=== PATIENT | male | born 1975 | race Caucasian/White ===

== ENCOUNTER 2019-02-08 02:16 | Emergency (ER) | payer MEDICAID, MEDICARE ==
[~2019-02-08] VITALS: Ht 175.3 cm; Wt 65.9 kg
[2019-02-08] MEDS ORDERED: pantoprazole 40mg Tablet.DR PO ONE (02:35)
[2019-02-08] MEDS ORDERED: LIDOcaine Viscous 15ml cup PO ONE (02:35)
[2019-02-08] MEDS ORDERED: mag hydrox/Alum hydrox/simeth 30ml oral suspension PO ONE (02:35)
[2019-02-08] MEDS ORDERED: ondansetron 4mg rapidly disintigrating tab PO ONE (02:35)
[2019-02-08] MEDS ORDERED: famotidine 20mg tablet PO ONE (02:35)
[2019-02-08 02:43] LABS: BASOPHILS # (AUTO) 0.1 X10'3 (0-0.2); BASOPHILS % (AUTO) 1.2 % (0-1); EOSINOPHILS # (AUTO) 0.1 X10'3 (0-0.9); EOSINOPHILS % (AUTO) 1.1 % (0-6); HEMATOCRIT 44.1 % (42.0-52.0); HEMOGLOBIN 15.4 g/dl (14.0-17.9); LYMPHOCYTES % (AUTO) 36.2 % (21-51); MEAN CORPUSCULAR HEMOGLOBIN 33.5 PG (27.0-31.0); MEAN CORPUSCULAR HGB CONC 34.9 g/dL (33.0-36.5); MEAN PLATELET VOLUME 7.5 FL (7.4-10.4); MONOCYTES # (AUTO) 0.4 X10'3 (0-0.9); MONOCYTES % (AUTO) 4.8 % (2-12); NEUTROPHILS # (AUTO) 4.8 X10'3 (1.8-7.7); NEUTROPHILS % (AUTO) 56.7 % (42-75); PLATELET COUNT 217 X10'3 (140-440); RED CELL DISTRIBUTION WIDTH 13.9 % (11.5-14.5); WHITE BLOOD COUNT 8.4 X10'3 (4.5-11.0)
[2019-02-08 02:44] LABS: CLARITY,URINE CLEAR (Clear); COLOR,URINE YELLOW (Yellow); GLUCOSE, URINE NEGATIVE (Neg); KETONES,URINE NEGATIVE (Neg); LEUKOCYTE ESTERASE ,URINE NEGATIVE (Neg); NITRITES, URINE NEGATIVE (Neg); OCCULT BLOOD,URINE NEGATIVE (Neg); PH,URINE 6.5 (4.8-8.0); PROTEIN,URINE NEGATIVE (Neg)
[2019-02-08 02:46] LABS: UA COLLECTION TYPE CLN CATCH MIDSTREAM
[2019-02-08 02:54] LABS: ALANINE AMINOTRANSFERASE 37 U/L (12-78); ALBUMIN 3.7 G/DL (3.4-5.0); ALKALINE PHOSPHATASE 138 IU/L (46-116); ANION GAP 13 (8-16); ASPARTATE AMINO TRANSFERASE 51 U/L (10-37); BILIRUBIN,TOTAL 0.5 MG/DL (0.1-1.0); BLOOD UREA NITROGEN 11 MG/DL (7-18); BUN/CREATININE RATIO 12.5 (5.4-32.0); CALCIUM 8.6 MG/DL (8.5-10.1); CHLORIDE 105 MMOL/L (99-107); CREATININE 0.88 MG/DL (0.60-1.10); GLUCOSE 110 MG/DL (70-104); LIPASE 142 U/L (73-393); POTASSIUM 3.5 MMOL/L (3.5-5.1); SODIUM 143 MMOL/L (135-145); TOTAL CARBON DIOXIDE 25.5 MMOL/L (24-32); TOTAL PROTEIN 7.5 G/DL (6.4-8.2); eGFR > 90 ML/MIN
[2019-02-08] MEDS ORDERED: HYDROcodone/acetaminophen 5mg/325mg tablet PO ONE (02:55)
[2019-02-08 03:09] LABS: ETHANOL 0.036 GM/DL (0.0-0.010)
[2019-02-08 04:24] VITALS: BP 159/105
== END 2019-02-08 04:26 | disposition home or self-care (01) ==
LOC: ER 02:17
DX: R10.12 Left upper quadrant pain (principal); F41.9 Anxiety disorder, unspecified; F32.9 Major depressive disorder, single episode, unspecified; F17.200 Nicotine dependence, unspecified, uncomplicated; F12.90 Cannabis use, unspecified, uncomplicated; F10.10 Alcohol abuse, uncomplicated; Z90.49 Acquired absence of other specified parts of digestive tract; Z98.890 Other specified postprocedural states; Z95.0 Presence of cardiac pacemaker; Z88.0 Allergy status to penicillin; Y90.0 Blood alcohol level of less than 20 mg/100 ml
CPT/HCPCS: 36415; 74176; 80053; 80320; 81003; 83690; 85025; 93005; 99284; J2405

== ENCOUNTER 2023-02-25 12:39 | Emergency (ER) | payer MEDICARE ==
[~2023-02-25] VITALS: Ht 175.3 cm; Wt 76.4 kg
[2023-02-25 13:16] VITALS: BP 111/79; PULSE 58; RESP 20; TEMP 98.3; O2SAT 100
== END 2023-02-25 17:40 | disposition left against medical advice (07) ==
LOC: ER 12:40
DX: F10.129 Alcohol abuse with intoxication, unspecified (principal); Z53.21 Procedure and treatment not carried out due to patient leaving prior to being seen by health care provider; Y90.9 Presence of alcohol in blood, level not specified
CPT/HCPCS: 99281